=== PATIENT | female | born 2000 | race African-American/Black ===

== ENCOUNTER 2020-10-07 22:21 | Emergency (ER) | payer OTHER ==
[~2020-10-07] VITALS: Ht 170.2 cm; Wt 77.6 kg
[~2020-10-07 22:21] MED LIST: NOHOMEMEDICATIONS
[2020-10-08 00:44] VITALS: BP 119/72
== END 2020-10-08 00:44 | disposition home or self-care (01) ==
LOC: ER 22:21
DX: G44.89 Other headache syndrome (principal)